=== PATIENT | female | born 1975 | race African-American/Black ===

== ENCOUNTER 2017-09-14 13:53 | Emergency (ER) | payer OTHER ==
[~2017-09-14] VITALS: Ht 170.2 cm; Wt 99.8 kg
[~2017-09-14 13:53] MED LIST: BACTROBAN CREAM30 GM TOP; KEFLEX500 MG PO; PROAIR HFA8.5 GM
== END 2017-09-14 15:10 | disposition home or self-care (01) ==
LOC: ER 13:53
DX: S06.0X0A Concussion without loss of consciousness, initial encounter (principal); M54.6 Pain in thoracic spine; J45.909 Unspecified asthma, uncomplicated; V89.2XXA Person injured in unspecified motor-vehicle accident, traffic, initial encounter; Y93.89 Activity, other specified; Y92.89 Other specified places as the place of occurrence of the external cause; Y99.8 Other external cause status